=== PATIENT | female | born 1975 | race Asian ===

== ENCOUNTER → 2019-02-01 | Day surgery (SDC) | payer OTHER ==
[~2019-02-01] MED LIST: FENTANYL CITRATE/PF 100MCG/2 ML INJ ONE; HYOSCYAMINE 0.125 MG TAB ONE; LIDOCAINE HCL 2% LOCAL INJ 5 ML SDV VIAL INJ ONE; MIDAZOLAM HCL 2 MG/2 ML VIAL ONE; PROPOFOL IV EMULSION 10 MG/ML 50 ML VIAL ONE
--- OUTSIDE RECORDS SUMMARY | 2019-02-01 10:00 | XMS REPORT | Summary of Care ---
Author Author [facility] - Health Organization [facility] - Health Address Unknown Phone Unavailable Care Team Providers Care Rotary Operator Name Role Phone Pcp, Patient Does Not Have A PCP Reason for Visit * Reason Comments Follow-up lab results Encounter Details Care Team Description Date Type Department Delvin Colbert MD [address] [place] [id number] [phone] Seasonal allergic rhinitis due to pollen (Primary Dx); LPRD (laryngopharyngeal reflux disease); Esophageal dysphagia; Nasal congestion 01/29/[address] [facility] [address] [place] [phone] Allergies No Known Allergiesdocumented as of this encounter (statuses as of 01/31/2019) Medications End Date Status Medication Sig Dispensed Refills Start Date Active MULTIVITAMINS WITH Take by 0 FLUORIDE (MULTI-VITAMIN mouth. ORAL) Active omeprazole (PRILOSEC) 40 Take 1 Cap by 30 Cap 3 mg capsuleIndications: mouth daily. 6 Gastroesophageal reflux disease without esophagitis Active benzonatate (TESSALON Take 1 20 capsule 0 PERLES) 100 mg capsule capsule by 6 mouth 3 (three) times daily. Active desonide 0.05 % Apply to 60 g 2 creamIndications: Contact affected 7 dermatitis, unspecified area(s) contact dermatitis type, daily. unspecified trigger Active triamcinolone acetonide Apply to 30 g 0 0.1 % creamIndications: area(s) 2 7 Contact dermatitis, (two) times unspecified contact daily. dermatitis type, unspecified trigger Active diclofenac 50 mg tablet TAKE 1 TABLET 0 04/16/201 (ORAL) 3 9 TIMES PER DAY PRN - PAIN FOR 10 DAYS Active lisinopril 10 mg tablet 0 9 Active butalbital-acetaminophen- 0 caff 50-325-40 mg tablet 9 Active fluticasone 50 Use 1 [place] 1 Bottle 5 mcg/actuation nasal in each 9 sprayIndications: Nasal nostril 2 congestion (two) times daily. Active ranitidine (ZANTAC) 300 Take 1 tablet 30 tablet 6 mg tabletIndications: by mouth at 9 LPRD (laryngopharyngeal bedtime. reflux disease) Active azelastine 137 mcg (0.1 Use 1 [place] 30 mL 3 %) nasal in each 9 sprayIndications: nostril 2 Seasonal allergic (two) times rhinitis due to pollen daily. Use in each nostril as directed documented as of this encounter (statuses as of 01/31/2019) Active Problems Patient Care Coordination Note Weight Loss Plan of Care My Weight Loss Goals are the following: ? Obtain a healthy BMI (Body Mass Index). My current BMI is: Body mass index is 26.87 kg/(m^2). o Obesity is a BMI above 30. o Overweight is a BMI of 25 to 29.9. ? Work to lose 10% of my current weight over the next 12 monthsMy Weight Loss Care Plan includes the following:? Start exercise:o Start with light exercise, such as walking and gradually increase how hard I exercise and for how ileana Goal: work up to exercise 4 to 6 times a week for 30 to 60 minutes at a time (minimum 150 minutes per week best for good health)? Follow a healthy dieto Journal what I am currently eating and drinking nowo Decrease portion sizes? Pay attention to my serving sizes? Eat until satisfied rather than full? Use smaller plateso Eat fewer empty calories such as desserts, sodas, candy, chipso Focus on eating foods from 5 food group such as fruits, vegetables, whole grains, low fat dairy products and lean protein foodso When eating out, make better choices? Pay attention to what and how much I eat and drink? Pay attention to how the food is preparedo Cook more at homeOnline Resource: www.choosemyplate.gov Problem Noted Date Overactive bladder 05/29/2017 Urinary frequency 04/17/2017 Menorrhagia 04/03/2017 S/P hysterectomy 04/03/2017 Cystocele, midline 03/20/2017 Dysuria 03/20/2017 Rectocele 03/20/2017 ABDULKADIR (stress urinary incontinence, female) 03/20/2017 Urethral stricture 03/20/2017 Other specified hypothyroidism 03/24/2016 Cough due to bronchospasm 01/01/2016 documented as of this encounter (statuses as of 01/31/2019) Immunizations Name Administration Dates Next Due H1n1 Vaccine 06/14/2009 Influenza Virus Vaccine 03/21/2012 Influenza Virus Vaccine 06/25/2018 Quad IM 3+ YRS documented as of this encounter Social History Date Tobacco Use Types Packs/Day Years Used Never Smoker Smokeless Tobacco: Never Used Drinks/Week oz/Week Comments Alcohol Use No Sex Assigned at Date Recorded Not on file Industry Job Start Date Occupation Not on file Not on file Not on file Travel End Travel History Travel Start No recent travel history available. documented as of this encounter Last Filed Vital Signs Reading Time Taken Comments Vital Sign - - Blood Pressure - - Pulse - - Temperature - - Respiratory Rate - - Oxygen Saturation - - Inhaled Oxygen Concentration 56.2 kg (124 lb) 01/29/2019 9:14 AM CDT Weight 152.4 cm (5') 01/29/2019 9:14 AM CDT Height 24.22 01/29/2019 9:14 AM CDT Body Mass Index documented in this encounter Progress Notes * Delvin Colbert MD - 01/29/2019 9:00 AM CDT Otolaryngology Clinic Visit Name: Patrizia Jaramillo Date: 01/29/2019 09:38 Chief Complaint: Nasal drainage History of Present Illness: Patrizia Jaramillo is a 42 year old female with history listed below presenting to clinic w ith intermittent thick nasal drainage for the past 2 years. Pt has completed her RAST panel and is present to discuss the results. Today, pt relates there is st ill a constant feeling of mucus in the back of her throat that she states is mil dly annoying. Pt admits to drinking at least 4 bottles of water a day and compli ance with using Flonase daily. She states she can still breath well. She has been seen and treated for LPRD and allergies with compliance to Flonase, Omeprazole 40 mg QD, Zantac 300 ng QHS. Patient reports that these episodes hap pen a few times a year and she is treated each time with a steroid and an antibi otic that usually relieve her symptoms, however she went to an urgent care on & they gave her prednisone and azithromycin without relief of symptoms. Patient claims that she has thick mucus draining in the back of her throat and has globus sensation. Patient denies fevers, hyposmia, decreased hearing, facial pressure, cough, dysphagia, or odynophagia. No other ENT concerns at present. Reflux Symptom Index (RSI) : TOTAL - 24 Hoarseness: 3 Throat clearin Throat mucus/ PND: 5 Dysphagia: 3 Coughing after eating/lying down: 0 Dyspnea/[place] Troublesome cough: 0 Globus sensation: 3 Heartburn/Indigestion: 4 Past Medical Hx: Past Medical History: Diagnosis Date Allergic rhinitis GERD (gastroesophageal reflux disease) Past Surgical Hx: Past Surgical History: Procedure Laterality Date HYSTERECTOMY Social History: Social History Tobacco Use Smoking status: Never Smoker Smokeless tobacco: Never Used Substance Use Topics Alcohol use: No Drug use: No Allergies: Patient has no known allergies. Medications: Current Outpatient Medications Medication Sig azelastine 137 mcg (0.1 %) nasal spray Use 1 Thrall in each nostril 2 (two) t imes daily. Use in each nostril as directed [id number]-cohgreitewxnl-[id number] 50-325-40 mg tablet diclofenac 50 mg tablet TAKE 1 TABLET (ORAL) 3 TIMES PER DAY PRN - PAIN FOR 10 DAYS fluticasone 50 mcg/actuation nasal spray Use 1 Thr[place] in each nostril 2 (two) times daily. lisinopril 10 mg tablet ranitidine (ZANTAC) 300 mg tablet Take 1 tablet by mouth at bedtime. desonide 0.05 % cream Apply to affected area(s) daily. triamcinolone acetonide 0.1 % cream Apply to area(s) 2 (two) times daily. benzonatate (TESSALON CHRISTA) 100 mg capsule Take 1 capsule by mouth 3 (thre e) times daily. MULTIVITAMINS WITH FLUORIDE (MULTI-VITAMIN ORAL) Take by mouth. omeprazole (PRILOSEC) 40 mg capsule Take 1 Cap by mouth daily. Review of Systems Positive issues in the Review of Systems will be BOLD Constitutional: fevers, chills, sweats, fatigue, weight loss, change in appetit e Eyes: vision changes, diplopia, eye pain Ears: hearing loss, otalgia, otorrhea, tinnitus, vertigo Nose: nasal congestion, rhinorrhea, epistaxis, change in sense of smell Throat: sore throat, hoarseness, dysphagia, odynophagia, globus sensation, PND Cardiovascular: chest pain, palpitations, dyspnea on exertion Respiratory: cough, wheeze, shortness of breath; hx asthma or COPD Gastrointestinal: nausea, vomiting, diarrhea, abdominal pain Integumentary: skin infection, rashes or skin changes Neurologic: seizures, headaches, weakness Physical Exam: Ht 5' (1.524 m) | Wt 124 lb (56.2 kg) | LMP 10/25/2016 | BMI 24.22 kg/m GENERAL: WDWN in NAD. Normal voice. No dyspnea or stridor. HEAD/FACE: Normocephalic, atraumatic. Facial nerve intact and bilaterally symmet tariq. Submandibular and parotid glands non-tender and without masses. EYES: EOMI; normal gaze alignment EARS: Auricles normal. Canals clear. TMs intact. Middle ear clear bilaterally. NOSE: no gross external nasal deformity; nasal mucosa normal; septum with right septal spur; Mild ITH. No polyps, purulence, or mass. OC/OP: No trismus; oral mucosa is wnl, no mass or lesion; good dentition; normal tongue mobility; 1+ tonsils , no erythema or exudate; uvula midline; palate int act and elevates symmetrically NECK: Neck is supple; trachea midline; no obvious goiter or thyroid nodules appr eciated LYMPH: Unable to appreciate gross cervical lymphadenopathy NEUROLOGICAL: Cranial nerves II-XII grossly intact. RESPIRATORY: Breathing is unlabored and symmetric. PROCEDURE: None DATA REVIEWED: RAST Panel 12/17/18 - Negative DIAGNOSES: ICD-10-CM ICD-9-CM 1. Seasonal allergic rhinitis due to pollen J30.1 477.0 2. LPRD (laryngopharyngeal reflux disease) K21.9 478.79 3. Esophageal dysphagia R13.10 787.20 4. Nasal congestion R09.81 478.19 Assessment/Plan: Patrizia Jaramillo is a 42 year old female with history of AR and LPRD previously seen by Rohan Colbert presenting for evaluation of thick post nasal drip and globus sensati on x 2 years. Today, patient is present to discuss RAST panel results. Patient r eports these symptoms usually resolve with steroid and antibiotic however, recen t steroid use did not relieve symptoms. RAST Panel results negative. - Recommend continuing to use Flonase daily - Recommend seeing GI specialist - Discussed diet recommendations for reflux - Discontinue morning acid esteban - Continue taking Zantac QHS - RTC PRN Scribe's Attestation I, Edie Carranza , am scribing for, and in the presence of, Delvin Colbert MD who performed the services described here-in. Edie Carranza, January 29, 2019, 9:38 AM Physician's Attestation I, Delvin Colbert MD, personally performed the services described in this docum entation , as scribed by, Edie Carranza in my presence and it is both accurat e and complete. Delvin Colbert MD January 31, 2019, 11:04 AM documented in this encounter Plan of Treatment Health Maintenance Due Date Last Done Comments DTaP,Tdap,and Td Vaccines 12/25/1994 (1 - Tdap) PAP SMEAR 12/25/1996 MAMMOGRAM 2015 INFLUENZA VACCINE (#1) 2019 06/25/2018, 03/21/2012 PNEUMOCOCCAL 0-64 YEARS Aged Out No longer eligible based COMBINED SERIES on patient's age to complete this topic documented as of this encounter Results Not on filedocumented in this encounter Visit Diagnoses Diagnosis Seasonal allergic rhinitis due to pollen - Primary LPRD (laryngopharyngeal reflux disease) Other diseases of larynx Esophageal dysphagia Dysphagia, pharyngoesophageal phase Nasal congestion Other diseases of nasal cavity and sinuses documented in this encounter Insurance Type Payer Benefit Subscriber ID Effective Phone Address Plan / Dates Group HMO/PPO/POS CIGNA CIGNA II [id number] 2018-P resent documented as of this encounter 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
--- OUTSIDE RECORDS SUMMARY | 2019-02-01 10:00 | XMS REPORT | Continuity of Care Document ---
Author Author [facility] Address Unknown Phone Unavailable Care Team Providers Care Wage Conciliator Name Role Phone [place] Unavailable Unavailable Problems Problem Status Onset Date Classification Date Reported Comments Source 241.0 - NONTOX UNINODUL Active 07/25/2012 [facility] [place] Medications No Data Provided for This Section Allergies, Adverse Reactions, Alerts No Known Medication Allergies Immunizations No Data Provided for This Section Results No Data Provided for This Section Pathology Reports No Data Provided for This Section Diagnostic Reports No Data Provided for This Section Consultation Notes No Data Provided for This Section Discharge Summaries No Data Provided for This Section History and Physicals No Data Provided for This Section Vital Signs No Data Provided for This Section Encounters Location Location Details Encounter Type Encounter Number Reason For Visit Attending Provider ADM Date DC Date Status Source OD [id number] 241.0 - NONTOX UNINODUL [place]REAGA 07/31/2012 Active [facility] [place] Procedures No Data Provided for This Section Assessment and Plan No Data Provided for This Section Plan of Care No Data Provided for This Section Social History No Data Provided for This Section Family History No Data Provided for This Section Advance Directives No Data Provided for This Section Functional Status No Data Provided for This Section
--- OUTSIDE RECORDS SUMMARY | 2019-02-01 10:00 | XMS REPORT | Summary of Care ---
Author Author [facility] - Health Organization [facility] - Health Address Unknown Phone Unavailable Care Team Providers Care Ore Roaster Name Role Phone Pcp, Patient Does Not Have A PCP Reason for Visit * Reason Comments Follow-up lab results Encounter Details Care Team Description Date Type Department Delvin Colbert MD [address] [place] [id number] [phone] Seasonal allergic rhinitis due to pollen (Primary Dx); LPRD (laryngopharyngeal reflux disease); Esophageal dysphagia; Nasal congestion 01/29/2019 [facility] [address] [place] [phone] Allergies No Known Allergiesdocumented as of this [...] tablet 9 Active fluticasone 50 Use 1 [place] 1 Bottle 5 mcg/actuation nasal in each 9 sprayIndications: Nasal nostril 2 congestion (two) times daily. Active ranitidine (ZANTAC) 300 Take 1 tablet 30 tablet 6 mg tabletIndications: by mouth at 9 LPRD (laryngopharyngeal bedtime. reflux disease) Active azelastine 137 mcg (0.1 Use 1 [place] 30 mL 3 %) nasal in each [...] mcg (0.1 %) nasal spray Use 1 [place] in each nostril 2 (two) t imes daily. Use in each nostril as directed [id number]-wslnvtivdjrvi-ytvu 50-325-40 mg tablet diclofenac 50 mg tablet TAKE 1 TABLET (ORAL) 3 TIMES PER DAY PRN - PAIN FOR 10 DAYS fluticasone 50 mcg/actuation nasal spray Use 1 [place] in each nostril 2 (two) times daily. 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
--- OUTSIDE RECORDS SUMMARY | 2019-02-01 10:00 | XMS REPORT | Clinical Summary ---
Author Author [facility] Organization [place] [facility] Address Unknown Phone Unavailable Care Team Providers Care Industrial Refrigeration Mechanic Name Role Phone Diamond Caldwell MD PCP Allergies No Known Allergies Medications End Date Status Medication Sig Dispensed Refills Start Date Active MULTIVITAMIN WITH Take 1 tablet 0 MINERALS (ONE-A-DAY by mouth MAXIMUM FORMULA ORAL) daily. Active ORLISTAT (VAISHALI ORAL) Take 1 tablet 0 by mouth daily. Active UROGESIC-BLUE Take 1 tablet 90 tablet 3 81.6-40.8-0.12 mg tablet by mouth 3 8 (three) times a day as needed (Urgency and frequency of urination). Active mirabegron 25 mg tablet Take 1 tablet 30 tablet 6 extended release 24 hr (25 mg total) 8 by mouth daily. Active diclofenac (CATAFLAM) 50 TAKE 1 TABLET 0 MG tablet (ORAL) 3 9 TIMES PER DAY PRN - PAIN FOR 10 DAYS Active fluticasone propionate 0 (FLONASE) 50 9 mcg/actuation nasal spray Active lisinopril 0 (PRINIVIL,ZESTRIL) 10 mg 9 tablet Active ranitidine (ZANTAC) 300 0 MG tablet 9 03/14/2019 Active nitrofurantoin Take 1 30 capsule 3 (MACRODANTIN) 100 MG capsule (100 9 capsule mg total) by mouth 2 (two) times a day as needed (UTI symptoms) for up to 120 days. 10/09/2018 nitrofurantoin, Take 1 14 capsule 0 macrocrystal-monohydrate, capsule (100 9 (MACROBID) 100 MG capsule mg total) by mouth 2 (two) times a day for 7 days. Active Problems Problem Noted Date History of recurrent UTIs 11/14/2018 Overactive bladder 05/29/2017 Urinary frequency 04/17/2017 Menorrhagia 04/03/2017 S/P hysterectomy 04/03/2017 Dysuria 03/20/2017 Rectocele 03/20/2017 Resolved Problems Problem Noted Date Resolved Date ABDULKADIR (stress urinary incontinence, female) 03/20/2017 12/05/2018 Cystocele, midline 03/20/2017 12/05/2018 Urethral stricture 03/20/2017 12/05/2018 Encounters Care Team Description Date Type Specialty Krzysztof Eckert MD Overactive bladder (Primary Dx); Urinary frequency; History of recurrent UTIs 12/05/2018 Office Visit Urology Krzysztof Eckert MD ABDULKADIR (stress urinary incontinence, female); Overactive bladder 11/25/2018 Hospital Radiology Encounter Krzysztof Eckert MD ABDULKADIR (stress urinary incontinence, female) (Primary Dx); Overactive bladder; History of recurrent UTIs 11/14/2018 Office Visit Urology Krzysztof Eckert MD Overactive bladder (Primary Dx) 10/02/2018 Orders Only Urology Krzysztof Eckert MD Urinary tract infection without hematuria, site unspecified (Primary Dx) 10/02/2018 Telephone Urology after 01/31/2018 Family History Medical History Relation Name Comments Diabetes Father Heart disease Father Hypertension Father Diabetes Mother Heart disease Mother Hypertension Mother Ovarian cancer Paternal Aunt Colon cancer Paternal Uncle Relation Name Status Comments Father Alive Mother Alive Paternal Aunt Paternal Uncle Social History Date Tobacco Use Types Packs/Day Years Used Never Smoker Smokeless Tobacco: Never Used Alcohol Use Drinks/Week oz/Week Comments No Sex Assigned at Date Recorded Not on file Industry Job Start Date Occupation Not on file Not on file Not on file Travel End Travel History Travel Start No recent travel history available. Last Filed Vital Signs Not on file Plan of Treatment Care Team Description Date Type Specialty Krzysztof Eckert MD [address] [facility] [address] [place] [address] 12/09/2019 Office Visit Urology Health Maintenance Due Date Last Done Comments INFLUENZA VACCINE 01/16/2019 03/21/2012 Implants Device Identifier Shelf Expiration Date Model / Serial / Lot Implanted Type Area Manufactur er 10/17/2019 [id number] / / [id number] System Sling urethrl Trnsvagnl Urological N/A: Urethra BSC Mesh Asmbly Advantage Fit - Implants UROLOGY/GY [id number] or Sets NECOLOGY Implanted: Qty: 1 on 04/03/2017 by Erik Gregg MD 07/07/2021 [id number] / [id number] / [id number] 2 X 4cm Activebarrier 200 N/A: Vagina Fastacting Amniotic Membrane Allograft Implanted: Qty: 1 on 04/03/2017 by Erik Gregg MD Procedures Comments Procedure Name Priority Date/Time Associated Diagnosis US RENAL Routine 11/25/2018 ABDULKADIR (stress urinary 2:22 PM CDT incontinence, female) Overactive bladder MICROSCOPIC EXAMINATION Routine 11/14/2018 3:52 PM CDT URINALYSIS, COMPLETE, Routine 11/14/2018 ABDULKADIR (stress urinary WITH REFLEX TO CULTURE 3:52 PM CDT incontinence, female) MICROSCOPIC EXAMINATION Routine 10/02/2018 4:02 PM CDT URINALYSIS, COMPLETE, Routine 10/02/2018 Overactive bladder WITH REFLEX TO CULTURE 4:02 PM CDT URINE CULTURE, Routine 10/02/2018 COMPREHENSIVE (DEREJE 4:02 PM CDT HIST) after 01/31/2018 Results * US Renal (11/25/2018 2:22 PM CDT) Specimen Narrative Performed At EXAMINATION:US RENAL [facility] CLINICAL HISTORY:N39.3 Stress incontinence (female) (male), N32.81 Overactive bladder, overactive bladder COMPARISON:None. FINDINGS: Ultrasound the kidneys and urinary bladder. The right kidney measures 9.2 x 4.6 x 4.8 cm with cortical thickness 1.4 cm. The left kidney measures 11.5 x 5.5 x 5.0 cm with cortical thickness 1.5 cm. Both kidneys normal echogenicity without stones, hydronephrosis, or obvious renal mass. No perinephric fluid collections. Color Doppler flow detected to both kidneys. Urinary bladder is fluid-filled with both ureter jets visualized. Postvoid residual is 49 cc. IMPRESSION: No significant sonographic abnormality. [id number] Procedure Note Hm Interface, Radiology Results Incoming - 11/25/2018 2:32 PM CDT EXAMINATION: US RENAL CLINICAL HISTORY: N39.3 Stress incontinence (female) (male), N32.81 Overactive bladder, overactive bladder COMPARISON: None. FINDINGS: Ultrasound the kidneys and urinary bladder. The right kidney measures 9.2 x 4.6 x 4.8 cm with cortical thickness 1.4 cm. The left kidney measures 11.5 x 5.5 x 5.0 cm with cortical thickness 1.5 cm. Both kidneys normal echogenicity without stones, hydronephrosis, or obvious renal mass. No perinephric fluid collections. Color Doppler flow detected to both kidneys. Urinary bladder is fluid-filled with both ureter jets visualized. Postvoid residual is 49 cc. IMPRESSION: No significant sonographic abnormality. [id number] Performing Organization Address [facility] Phone Number [facility] [address] [place] [address] * URINALYSIS, COMPLETE, WITH REFLEX TO CULTURE (11/14/2018 3:52 PM CDT) Only the most recent of 2 results within the time period is included. Specific 1.019 1.005 - 1.030 [facility] gravity, urine pH, urine 6.5 5.0 - 7.5 [facility] Color, UA Yellow Yellow [facility] Appearance Clear Clear [facility] WBC esterase, Negative Negative [facility] urine Protein, UA Negative Negative/Trace [facility] Glucose, urine Negative Negative [facility] Ketones, UA Negative Negative [facility] Occult blood, Negative Negative [facility] urine Bilirubin, UA Negative Negative [facility] Urobilinogen, 0.2 0.2 - 1.0 mg/dL [facility] UA Nitrite, UA Negative Negative [facility] Microscopic CommentComment: Microscopic [facility] examination follows if indicated. Microscopic See below:Comment: Microscopic [facility] examination was indicated and was performed. Urinalysis CommentComment: This specimen [facility] reflex will not reflex to a Urine Culture. Specimen Narrative Performed At [facility]formed at:[facility] - [facility] [address] [place], [id number] Kitchen Helper: Ronak Soliz MD, Phone:[phone] Performing Organization Address City/[facility] * Microscopic Examination (11/14/2018 3:52 PM CDT) Only the most recent of 2 results within the time period is included. WBC, UA 0-5 0 - 5 /hpf [facility] RBC, UA 0-2 0 - 2 /hpf [facility] Epithelial 0-10 0 - 10 /hpf [facility] cells (non renal) Mucus, UA Present Not Estab. [facility] Bacteria, UA Few None seen/Few [facility] Specimen Narrative Performed At Performed at:01 - [facility] [place] [facility] [address] [place], [id number] Kitchen Helper: Ronak Soliz MD, Phone:[phone] Performing Organization Address City/[facility] * Urine Culture, Comprehensive (10/02/2018 4:02 PM CDT) Urine culture No growth [facility] Specimen Narrative Performed At Performed at: - [facility] [place] [facility] [address] [place], [id number] Kitchen Helper: Ronak Soliz MD, Phone:[phone] Performing Organization Address City/[facility] Phone Number [facility] after 01/31/2018 Insurance Type Payer Benefit Subscriber ID Effective Phone Address Plan / Dates Group HMO CIGNA CIGNA OPEN xxxxxxxxxxx 2013 ACCESS/NET -Present WORK Advance Directives Patient has advance care planning documents, and code status on file. For more i nformation, please contact: Dariel Tran [address] [place] [address] Date Inactivated Comments Code Status Date Activated 04/05/2017 5:11 PM Full Code 04/03/2017 11:02 AM Code Status decision reached by: Patient
--- OUTSIDE RECORDS SUMMARY | 2019-02-01 10:00 | XMS REPORT ---
Author Author [facility] Address Unknown Phone Unavailable Care Team Providers Care Customs Investigator Name Role Phone Unavailable Unavailable Problems This patient has no known problems. Allergies, Adverse Reactions, Alerts This patient has no known allergies or adverse reactions. Medications This patient has no known medications.
--- NOTE | 2019-02-01 12:48 | Operative Report ---
DATE OF PROCEDURE: 02/01/2019 SURGEON: Toni Myers MD PROCEDURES: EGD with esophageal dilatation and biopsies and colonoscopy with polypectomy and biopsies. INDICATIONS FOR EGD: Dysphagia, acid reflux, bloating. INDICATIONS FOR COLONOSCOPY: Lower abdominal pain, intermittent bout of fecal urgency, family history of colon cancer. MEDICATIONS: The patient was done under MAC, please see anesthesiologist's note. PROCEDURE IN DETAIL: With the patient in the left lateral decubitus position, a flexible fiberoptic Olympus gastroscope was introduced into the esophagus under direct visualization without any difficulty. There was some patchy erythema noted in distal esophagus. A mild stricture was noted at the GE junction that was dilated to size 52-N[place]ian Shen. The scope was then advanced with ease into the stomach and mucosa overlying the antrum and the body revealed some patchy erythema and low-grade to moderate edema and biopsies were obtained and sent to stain for H. pylori. The pylorus was of normal contour and shape, it was intubated with ease and the scope was advanced all the way to the second portion of the duodenum. Biopsies were obtained from the second portion and duodenal bulb to rule out sprue. The scope was then withdrawn back into the stomach and retroflexed and mucosa overlying the fundus and the cardia appeared to be within normal limits. The scope was then straightened out, it was subsequently withdrawn, and the patient tolerated the procedure well. IMPRESSION: 1. Distal esophagitis. 2. Esophageal stricture at GE junction dilated to size 52-N[place]ian Shen. 3. Gastritis, biopsied, biopsies sent to stain for Helicobacter pylori. 4. Rule out sprue. PLAN: Follow up histology. Initiate Protonix 40 mg one p.o. q.a.m. before meals. The patient was then turned around and after adequate lubrication of the anal canal, a flexible fiberoptic Olympus colonoscope was inserted into the rectum with ease and advanced all the way to the cecum. The scope was then withdrawn slowly, mucosa overlying the cecum and ascending colon appeared to be within normal limits. A single diverticulum was noted in the hepatic flexure. The transverse and descending appeared to be within normal limits. Mild patchy erythema and low-grade to moderate edema was noted in the sigmoid colon. Biopsies were obtained. Three minute polyps were hot biopsied in the sigmoid colon. The rectum grossly appeared to be within normal limits. The scope was then retroflexed into the distal rectum and small internal hemorrhoids were noted, none of which was actively bleeding. The scope was then straightened out, it was subsequently withdrawn, and the patient tolerated the procedure well. IMPRESSION: 1. Single diverticulum hepatic flexure. 2. Segmental colitis, mild, sigmoid colon. Biopsies obtained. 3. Sigmoid colon polyps x3, hot biopsied. 4. Internal hemorrhoids, none actively bleeding. PLAN: Follow up histology. Initiate Visbiome one p.o. b.i.d. The patient might benefit from a followup colonoscopy in 5 years. Toni Myers MD [facility] [place] /[id number] cc: Diamond Caldwell MD
== END | disposition home or self-care (01) ==
LOC: OR 07:00
PROVIDERS: ATTEND Internal Medicine Gastroenterology
DX: K29.70 Gastritis, unspecified, without bleeding (principal); K63.5 Polyp of colon; K22.2 Esophageal obstruction; K50.10 Crohn's disease of large intestine without complications; K21.9 Gastro-esophageal reflux disease without esophagitis; K20.9 Esophagitis, unspecified; K57.30 Diverticulosis of large intestine without perforation or abscess without bleeding; K64.8 Other hemorrhoids; Z80.0 Family history of malignant neoplasm of digestive organs
CPT/HCPCS: 43239; 43450; 45380; 45384; J2001; J2250; J2704; J3010